=== PATIENT | male | born 1980 | race African-American/Black ===

== ENCOUNTER 2018-01-08 15:19 | Emergency (ER) | payer OTHER ==
[~2018-01-08] VITALS: Ht 182.9 cm; Wt 80.6 kg
[2018-01-08 16:31] LABS: SOURCE URINE
[2018-01-08 16:41] LABS: APPEARANCE SL.HAZY ((CLEAR)); BILIRUBIN NEGATIVE; BLOOD NEGATIVE; COLOR YELLOW ((YELLOW)); GLUCOSE (STRIP) NEGATIVE; KETONES NEGATIVE; LEUKOCYTES MODERATE; NITRITE NEGATIVE; PROTEIN (STRIP) 30; SPECIFIC GRAVITY 1.027 (1.000-1.030); UROBILINOGEN 0.2 MG/DL (0.2-1.0)
[2018-01-08 17:37] LABS: BACTERIA 2+ /HPF; EPITHELIAL CELLS RARE /HPF; MUCUS 1+ /LPF; RED BLOOD CELLS NONE SEEN /HPF (0-5); UCUL ADDED? YES; WHITE BLOOD CELLS TNTC /HPF (0-5)
[2018-01-08] MEDS ORDERED: CIPRO500 MG PO (17:40)
[2018-01-08 18:42] VITALS: BP 144/78
[2018-01-10 13:33] LABS: CHLAMYDIA TRACHOMATIS NEGATIVE; NEISSERIA GONORRHOEAE POSITIVE
== END 2018-01-08 18:43 | disposition home or self-care (01) ==
LOC: EME 15:19
PROVIDERS: Emergency Medicine
DX: N39.0 Urinary tract infection, site not specified (principal); A64 Unspecified sexually transmitted disease; Z86.19 Personal history of other infectious and parasitic diseases; F17.200 Nicotine dependence, unspecified, uncomplicated
CPT/HCPCS: 81003; 87086; 87491; 87591; 99281; 99284; J0696

== ENCOUNTER 2018-01-23 03:02 | Emergency (ER) | payer OTHER ==
[~2018-01-23] VITALS: Ht 182.9 cm; Wt 77.9 kg
[~2018-01-23 03:02] MED LIST: CIPRO500 MG PO
[2018-01-23] MEDS ORDERED: AUGMENTIN875 MG PO (03:26)
[2018-01-23 03:45] VITALS: BP 159/104
[2018-01-23 03:49] LABS: SOURCE URINE
[2018-01-24 13:53] LABS: CHLAMYDIA TRACHOMATIS NEGATIVE; NEISSERIA GONORRHOEAE NEGATIVE
== END 2018-01-23 03:46 | disposition home or self-care (01) ==
LOC: EME 03:02
PROVIDERS: Physician Assistant
PROC: 3E0234Z Introduction of Serum, Toxoid and Vaccine into Muscle, Percutaneous Approach (ICD-10-PCS; principal; 2018-01-23)
DX: S41.152A Open bite of left upper arm, initial encounter (principal); S01.452A Open bite of left cheek and temporomandibular area, initial encounter; Y04.1XXA Assault by human bite, initial encounter; Y07.04 Female partner, perpetrator of maltreatment and neglect; F17.200 Nicotine dependence, unspecified, uncomplicated
CPT/HCPCS: 87491; 87591; 99281; 99284